=== PATIENT | female | born 1975 | race Caucasian/White ===

== ENCOUNTER 2023-10-05 08:12 | Outpatient (CLI) | payer OTHER, SELFPAY ==
--- NOTE | 2023-10-31 14:28 | WPDSLEEPSTUD ---
Sleep Study Date of Study: 10/05/23 Ordering Provider: Woody Witt MD Interpreting Physician: Sarah Mak DO Sleep Study Type: Polysomnogram Height: 1.57 m Weight: 95.254 kg Body Mass Index: 38.4 Neck Circumference (inches): 14.75 [place]: 14 Reason for Sleep Study Non-restorative sleep Sleep History The patient is a 48-year-old female with anxiety and schizophrenia that had a sleep study ordered by her primary care physician for evaluation of sleep apnea. The patient occasionally awakens from sleep short of breath. She occasionally awakens at night with heartburn, belching or cough. She occasionally snores but it is loud enough that others complain. She frequently has trouble sleeping when she has a cold. She occasionally wakes up gasping for air throughout the night. She occasionally has breathing problems at night observed by herself or others. She occasionally sweats excessively at night. She denies having heart palpitations or irregular heartbeats during the night. She frequently falls asleep during the day but never while driving. She denies cataplexy. She frequently has trouble at school or work due to sleepiness. She occasionally feels unable to move while waking up or falling asleep. She occasionally experiences vivid dreamlike scenes upon awakening or falling asleep. She occasionally feels afraid of going to sleep. She frequently has nightmares and frequently remembers her dreams. She rarely has thoughts racing through her mind. She occasionally feels sad or depressed. She frequently has anxiety. She frequently has muscular tension. She occasionally notices parts of her body jerk. She rarely kicks during the night. She denies having crawling and aching feelings in her legs and denies having leg pain during the night. He denies grinding her teeth during sleep and denies awakening with morning jaw pain. She is frequently bothered by pain during the day and occasionally awakened by pain during the night. She rarely wakes up feeling stiff in the morning. She denies waking up with sore or achy muscles. She occasionally wakes up with pain in the neck, spine and other joints. She goes to bed at 8:00 p.m. on both weekdays and weekends. It takes her few minutes to fall asleep. She wakes up 2-3 times to urinate and is able to fall back asleep within 5 minutes. She wakes up at 7:30 a.m. on both weekdays and weekends. She typically gets 11 hours of sleep per night. She denies staying in bed after waking up in the morning. She currently lives with her parents. She denies consuming any caffeinated beverages within 2 hours of bedtime. She will occasionally engage in physical exercise before bedtime. She will watch television before falling asleep. She will take naps in afternoon or the evening but they are not refreshing. She will occasionally consume caffeinated beverages throughout the day. She denies tobacco use. She will occasionally consume alcoholic beverages. She denies recreational drug use. [facility] Social History Social History Smoking status: Never smoker Alcohol intake: current Alcohol use details: Occasionally Substance use: never Substance use type: does not use Lack of Transportation: No Lack of Food: Sometimes True Current Housing: I Have Housing Concerned About Future Housing: No Difficulty Paying Gas/Electric Bills: No Difficulty Paying for Meds: No Currently Unemployed: No Education: Master's Degree or Higher Difficulty w/ Childcare or Family Care: No Living arrangements: with family Medications Home Medications Medication Instructions Recorded Confirmed Type propranolol 20 mg tablet 20 mg PO Q12H 09/28/23 09/28/23 History Sleep Procedure A full night polysomnogram using the [employer] multi-channel system recorded the standard physiologic parameters including EEG, EOG, pringle
[2023-10-31 14:39] VITALS: BMI 38.4
== END 2023-10-06 06:59 | disposition home or self-care (01) ==
LOC: ANHCSM 08:14
PROVIDERS: PCP Family Medicine; Visit Provider Family Medicine
DX: G47.33 Obstructive sleep apnea (adult) (pediatric) (principal)
CPT/HCPCS: 95810

== ENCOUNTER 2024-04-30 06:15 | Day surgery (SDC) | payer OTHER, SELFPAY ==
[2024-04-09 11:52] VITALS: BMI 36.9
[2024-04-16 11:52] VITALS: BMI 36.6
--- NOTE | 2024-04-30 06:50 | P.PNAN_ITS ---
Anes - Initial Pre Proc Eval Procedure: Operation Date: 04/30/24 08:00 Proposed Procedures p Screening Colonoscopy - Charles Mckenzie DO Date/Time: 04/30/24 06:50 Surgeon: Charles Mckenzie DO Pre Op Diagnosis: Neoplasm Screening Patient Data Age: 49 Gender: F Height: 1.57 m Weight: 91 kg Allergies Allergy/AdvReac Type Severity Reaction Status Date / Time No Known Allergies Allergy Verified 04/30/24 06:44 Home Medications Medication Instructions Recorded Confirmed Type CPap #1 ea 11/01/23 04/03/24 Rx paliperidone palmitate 156 mg/mL 156 mg IM MONTHLY 01/25/24 04/30/24 History intramuscular syringe ([facility] metformin 500 mg tablet,extended 500 mg PO DAILY #90 tabs 04/03/24 04/30/24 Rx release 24 hr sertraline 25 mg tablet 25 mg PO HS 04/30/24 04/30/24 History Patient hx anesthesia problems: none Family hx anesthesia problems: none Results Review: All pre-operative results and documents have been reviewed as part of the pre-operative evaluation. [facility] Past Medical History Medical History (Updated 04/30/24 @ 07:50 by Charles Mckenzie DO) Anxiety Diabetes type 2, controlled MALINA (obstructive sleep apnea) Schizophrenia [facility]/ [facility] ( [facility]) Family History Family History Other Pancreatic cancer Social History Social History Smoking status: Never smoker Alcohol intake: current Drinks per week: 1 Alcohol use details: Occasionally Substance use: never Substance use type: does not use Do You Feel Safe in your Home?: Yes Lack of Transportation: No Lack of Food: Sometimes True Current Housing: I Have Housing Concerned About Future Housing: No Difficulty Paying Gas/Electric Bills: No Difficulty Paying for Meds: No Currently Unemployed: No Education: Master's Degree or Higher Difficulty w/ Childcare or Family Care: No Living arrangements: with family Spiritual care concerns: No Anes - Eval Final PreProcedure Day of Procedure 04/30/24 06:50 Patient weight: obese Heart: regular rate and rhythm Lungs: clear to auscultation Airway: Mallampati scale class II Neurological: alert and oriented Last oral intake: >/= 8 hours ASA classification: III Emergent: no Anesthetic plan: proceed Anesthesia type and monitoring: general GIVS and standard monitoring Results Review: All pre-operative results and documents have been reviewed as part of the pre- operative evaluation. Informed Consent: The patient's anesthetic plan and its attendant risks and benefits were discussed with the patient/family/POA. Questions were solicited and answers provided to the satisfaction of the patient/family/POA.
[2024-04-30 06:55] VITALS: BP 109/73; PULSE 52; RESP 18; TEMP 36.8; O2SAT 98; BMI 36.3
[2024-04-30] MEDS: LACTATED RINGERS 1,000 ML 150 ML IV CONT (07:14)
[2024-04-30 07:16] LABS: Glucose Point of Care 92 mg/dl (65-105)
--- NOTE | 2024-04-30 07:49 | PM.IMHP ---
H&P: HPI History of Present Illness Date/Time: 04/30/24 07:49 Chief Complaint: Screening for colorectal cancer Narrative: 49 yo woman presents for colonoscopy. She denies hematochezia or melena. Denies fam hx colon cancer. Review of Systems Review of Systems: All systems reviewed & are unremarkable except as noted in HPI and below Constitutional: Constitutional: Denies chills, Denies fever(s), Denies headache(s) and Denies weight loss Eyes: Eyes: Denies change in vision ENT: Denies dizziness, Denies headache(s), Denies neck mass and Denies throat swelling Cardiovascular: Cardiovascular: Denies chest pain, Denies lightheadedness and Denies dyspnea Respiratory: Respiratory: Denies cough, Denies dyspnea and Denies wheezing Gastrointestinal: Gastrointestinal: Denies abdominal pain, Denies change in bowel habits, Denies nausea and Denies vomiting Genitourinary: Genitourinary: Denies hematuria and Denies dysuria Musculoskeletal: Musculoskeletal: Reports as per HPI Integumentary/Breasts: Skin/Breast: Reports as per HPI Neurologic: Denies dizziness and Denies headache(s) Allergic/Immunologic: Allergic/Immunologic: Denies throat swelling and Denies wheezing [facility] Past Medical History Medical History (Updated 04/30/24 @ 07:50 by Charles Mckenzie DO) Anxiety Diabetes type 2, controlled MALINA (obstructive sleep apnea) Schizophrenia [facility] ( [facility]) Family History Family History Other Pancreatic cancer Social History Social History Smoking status: Never smoker Alcohol intake: current Drinks per week: 1 Alcohol use details: Occasionally Substance use: never Substance use type: does not use Do You Feel Safe in your Home?: Yes Lack of Transportation: No Lack of Food: Sometimes True Current Housing: I Have Housing Concerned About Future Housing: No Difficulty Paying Gas/Electric Bills: No Difficulty Paying for Meds: No Currently Unemployed: No Education: Master's Degree or Higher Difficulty w/ Childcare or Family Care: No Living arrangements: with family Spiritual care concerns: No Meds Home Medications and Allergies Home Medications Medication Instructions Recorded Confirmed Type CPap #1 ea 11/01/23 04/03/24 Rx paliperidone palmitate 156 mg/mL 156 mg IM MONTHLY 01/25/24 04/30/24 History intramuscular syringe ([facility]) metformin 500 mg tablet,extended 500 mg PO DAILY #90 tabs 04/03/24 04/30/24 Rx release 24 hr sertraline 25 mg tablet 25 mg PO HS 04/30/24 04/30/24 History Allergies Allergy/AdvReac Type Severity Reaction Status Date / Time No Known Allergies Allergy Verified 04/30/24 06:44 Vital Signs Vital Signs - 24 hr 04/30/24 06:55 Temperature 36.8 C Pulse Rate 52 L Respiratory Rate 18 Blood Pressure 109/73 Pulse Oximetry 98 Oxygen Delivery Room Air Exam Const: General: no acute distress and alert Orientation/consciousness: patient oriented x3 HENMT: Head: normocephalic and atraumatic Ears: hearing grossly normal bilaterally Face/Nose/Sinus: Normal nares present Mouth: Yes Normal oral and palatal mucosa present Eyes: Periorbital: periorbital findings normal Sclera: sclerae normal EOM: EOMs intact bilaterally Neck: Neck: normal visual inspection, no lymphadenopathy and trachea midline Chest: Chest palpation & inspection: normal inspection of the chest Resp: Effort & Inspection: normal respiratory effort Auscultation: clear to auscultation bilaterally Cardio: Jugular venous distension: no JVD Rate: regular rate Rhythm: regular rhythm Heart sounds: S1 normal heart sound present and S2 normal heart sound present Peripheral pulses: Peripheral pulses 2+ throughout GI: Inspection: normal to inspection GI Palp: Yes Soft to palpation,
[2024-04-30 08:27] VITALS: BP 112/99; PULSE 57; RESP 14; O2SAT 99
--- NOTE | 2024-04-30 08:32 | WPDANESPN ---
Anes - Prog Note Post-Op Date/Time: 04/30/24 08:32 Cardiovascular status: normal Respiratory status: normal Airway patency: baseline Mental status: baseline Post-Op hydration status: normal Vital Signs: Last Vital Signs Temp 36.8 C 04/30/24 06:55 Pulse 57 L 04/30/24 08:27 Resp 14 04/30/24 08:27 BP 112/99 H 04/30/24 08:27 Pulse Ox 99 04/30/24 08:27 O2 Del Method Room Air 04/30/24 08:27 Pain Score (VAS): 0 04/30/24 07:09 POC Capillary Glucose 92 Post-procedural complaints: none Patient Feedback: Patient satisfied with anesthetic care. Other Findings: Patient vital signs back to baseline. Patient denies nausea and vomiting. Patient's pain under control. Patient OK for discharge.
[2024-04-30 08:37] VITALS: BP 110/65; PULSE 48; RESP 15; O2SAT 98
[2024-04-30 08:47] VITALS: BP 124/73; PULSE 47; RESP 16; O2SAT 97
== END 2024-04-30 08:55 | disposition home or self-care (01) ==
PROVIDERS: PCP Family Medicine; Visit Provider Surgery
PROC: 0DJD8ZZ Inspection of Lower Intestinal Tract, Via Natural or Artificial Opening Endoscopic (ICD-10-PCS; CPT 45378; principal; 2024-04-30 08:00)
DX: Z12.11 Encounter for screening for malignant neoplasm of colon (principal)
CPT/HCPCS: 45378

== ENCOUNTER 2024-08-08 09:26 | Outpatient (CLI) | payer OTHER, SELFPAY ==
--- NOTE | ~2024-08-08 | MM_ITS ---
EXAMINATION: MM screening millie BI w stephania HISTORY: Screening TECHNIQUE: Craniocaudal and mediolateral oblique 3-D tomosynthesis images were obtained and synthetic 2-D images were generated. CAD analysis was submitted and interpreted. COMPARISON: No prior mammogram is available for comparison at this institution. BREAST PARENCHYMAL COMPOSITION: Dense: The breasts are heterogeneously dense, which may obscure small masses FINDINGS: There is no evidence of suspicious mass, calcification, or architectural distortion to sugg est malignancy in either breast. There has been no suspicious interval change. IMPRESSION: 1. No mammographic evidence of malignancy. 2. Recommend routine screening mammography in one year. BI-RADS Category 1: Negative Reviewed, dictated and finalized at location B.
== END 2024-08-08 09:27 | disposition home or self-care (01) ==
LOC: ANHIMG 09:28
PROVIDERS: PCP Family Medicine; Visit Provider Family Medicine
DX: Z12.31 Encounter for screening mammogram for malignant neoplasm of breast (principal)
CPT/HCPCS: 77063; 77067

== ENCOUNTER 2025-08-28 09:38 | Outpatient (CLI) | payer OTHER, SELFPAY ==
--- NOTE | ~2025-08-28 | MM_ITS ---
EXAMINATION: MM screening millie BI w stephania HISTORY: Screening TECHNIQUE: Craniocaudal and mediolateral oblique 3-D tomosynthesis images were obtained and synthetic 2-D images were generated. CAD analysis was submitted and interpreted. COMPARISON: 08/08/2024 BREAST PARENCHYMAL COMPOSITION: The breasts are heterogeneously dense, which may obscure small masses. FINDINGS: There is no evidence of suspicious mass, calcification, or architectural distortion to suggest malignancy in either breast. IMPRESSION: 1. No mammographic evidence of malignancy. 2. Recommend routine screening mammography in one year. BI-RADS Category 1: Negative Reviewed, dictated and finalized at location B. T COATING MACHINE OPERATOR
--- OUTSIDE RECORDS SUMMARY | 2025-08-29 09:25 | XMS_ITS | Clinical Summary ---
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 Role Phone Unavailable Primary Care Provider Unavailabl e Social History Tobacco Use Types Packs/Day Years Used Date Smoking Tobacco: Never Assessed Comments Unknown Sex and Gender Information Value Date Recorded Sex Assigned at Not on file Legal Sex Female 4:09 PM CDT Gender Identity Not on file Sexual Orientation Not on file Plan of Treatment Health Maintenance Due Date Last Done Comments Cervical Cancer Screening Pa p Smear (Age 30 to 64) Every 3 Years 1977 Colorectal Cancer Screening Colonoscopy (10 Years) 1977 Annual Physical 1980 Hepatitis C 1995 DTaP, Tdap and Td Vaccines ( 1 - Tdap) 1996 Hepatitis B Vaccines (1 of 3 - 19+ 3-dose series) 1996 Cervical Cancer Screening Pa p with HPV Testing (Age 30 to 64) Every 5 Years 2007 Cervical Cancer Screening with HPV 2007 Mammogram Screening 2017 COVID-19 Vaccine (2024-2 6 season) 2025 Influenza Adult (#1) 2025 Hepatitis A Vaccines Aged Out No long er eligible based on patient's age to complete this topic Meningococcal B Vaccine Aged Out No l onger eligible based on patient's age to complete this topic Meningococcal Vaccine Aged Out No octaviano alissa eligible based on patient's age to complete this topic Pneumococcal Vaccine: Pediat rics (0 to 5 Years) and At-Risk Patients (6 to 49 Years) Aged Out No longer eligible b ased on patient's age to complete this topic RSV Immunizations Under 20 Months Aged Out No longer eligible based on patient's age to complete this topic
== END 2025-08-28 09:39 | disposition home or self-care (01) ==
LOC: ANHFOHIMG 09:39
PROVIDERS: PCP Family Medicine; Visit Provider Family Medicine
DX: Z12.31 Encounter for screening mammogram for malignant neoplasm of breast (principal)
CPT/HCPCS: 77063; 77067